=== PATIENT | female | born 1960 | race Caucasian/White ===

== ENCOUNTER 2019-10-10 18:18 | Inpatient (IN) | payer OTHER ==
[~2019-10-10] VITALS: Ht 165.1 cm; Wt 73.9 kg
[~2019-10-10 18:18] MED LIST: ACETAMINOPHEN 1000 MG/100 ML IV ONE; AMBIEN10 MG PO; CEFAZOLIN SOD 1 GM VIAL ONE; DEXAMETHASONE SOD PHOS INJ 4 MG/ML VIAL ONE; GABAPENTIN400 MG PO; KETOROLAC TROMETHAMINE 30 MG/ML VIAL ONE; LIDOCAINE HCL 2% LOCAL INJ 5 ML SDV VIAL INJ ONE; MS CONTIN30 MG PO; ONDANSETRON HCL INJ 2MG/ML 2ML 2 MG/ML VIAL ONE; PERCOCET 10-321 EACH PO; PHENERGAN SUPP25 MG PO; PROPOFOL IV EMULSION 10 MG/ML 20 ML VIAL ONE; SEVOFLURANE INHAL SOLN 250 ML PEN BTL ONE; SUCCINYLCHOLINE CHLORIDE 20 MG/ML 10ML VIAL ONE; TIZANIDINE HCL4 MG PO
[2019-10-10] MEDS ORDERED: MORPHINE SULFATE INJ 4 MG/ML INJ 1ML IV STA (18:23)
[2019-10-10] MEDS ORDERED: ONDANSETRON HCL INJ 2MG/ML 2ML 2 MG/ML VIAL IV STA (18:23)
[2019-10-10] MEDS ORDERED: SODIUM CHLORIDE 0.9% 1000ML 1,000 ML IV STA (18:23)
[2019-10-10 19:09] LABS: BASOPHILS % 0.3 % (0.0-1.0); EOSINOPHILS # (AUTO) 0.5 (0.0-0.4); HEMATOCRIT 30.1 % (34.2-44.1); HEMOGLOBIN 9.3 g/dL (12.0-16.0); LYMPHOCYTES # (AUTO) 2.2 (1.0-3.2); LYMPHOCYTES % 16.1 % (18.0-39.1); MEAN CORPUSCULAR HEMOGLOBIN 23.4 pg (28-32); MEAN CORPUSCULAR HGB CONC 30.9 g/dL (31-35); MEAN CORPUSCULAR VOLUME 75.6 fL (81-99); MONOCYTES # (AUTO) 0.6 (0.2-0.8); MONOCYTES % 4.4 % (4.4-11.3); NEUTROPHILS % 74.9 % (38.7-80.0); PLATELET COUNT 579 x10e3/uL (140-360); RED BLOOD COUNT 3.98 x10e6/uL (3.6-5.1); RED CELL DISTRIBUTION WIDTH 17.3 % (11.7-14.4)
[2019-10-10 19:14] LABS: INR 0.98; PROTHROMBIN TIME 13.6 seconds (11.9-14.5)
[2019-10-10 19:15] LABS: PARTIAL THROMBOPLASTIN TIME 41.4 seconds (23.8-35.5)
--- NOTE | 2019-10-10 19:17 | Diagnostic Imaging Report ---
HIP LEFT 2-3 VW (+/- PELVIS) - 3 views HISTORY: Pain COMPARISON: None available. FINDINGS: Nondisplaced fracture of the left femoral neck. Pelvic surgical clips. Degenerative changes of lower lumbar spine and SI joints. IMPRESSION: Nondisplaced fracture of the left femoral neck. Signed by: Dr. Faisal Hough MD on 10/10/2019 7:14 PM
[2019-10-10 19:24] LABS: ALBUMIN 3.1 g/dL (3.5-5.0); ALBUMIN/GLOBULIN RATIO 0.7 (0.8-2.0); ALKALINE PHOSPHATASE 87 IU/L (40-150); ANION GAP 11.1 mmol/L (8-16); BLOOD UREA NITROGEN 15 mg/dL (7-26); BUN/CREATININE RATIO 19 (6-25); CALCIUM 9.4 mg/dL (8.4-10.2); CARBON DIOXIDE 29 mmol/L (22-29); CHLORIDE 100 mmol/L (98-107); CREATINE KINASE 52 IU/L (29-168); CREATININE, SERUM 0.78 mg/dL (0.57-1.11); EST GLOMERULAR FILTRATION RATE > 60 ML/MIN (60-); GLUCOSE 100 mg/dL (74-118); POTASSIUM 4.1 mmol/L (3.5-5.1); SODIUM 136 mmol/L (136-145)
[2019-10-10 19:25] LABS: BILIRUBIN,URINE NEGATIVE (NEGATIVE); CLARITY,URINE SL CLOUDY (CLEAR); COLOR,URINE YELLOW (YELLOW); KETONES,URINE NEGATIVE (NEGATIVE); LEUKOCYTE ESTERASE ,URINE NEGATIVE (NEGATIVE); NITRITE,URINE NEGATIVE (NEGATIVE); PROTEIN,URINE DIPSTICK NEGATIVE (NEGATIVE); URINE UROBILINOGEN 1 mg/dL (0.2 - 1)
[2019-10-10] MEDS ORDERED: ONDANSETRON HCL INJ 2MG/ML 2ML 2 MG/ML VIAL IV PRN (19:30)
[2019-10-10] MEDS ORDERED: HYDROMORPHONE 1MG/1ML INJ IV PRN (19:30)
[2019-10-10 19:39] LABS: ALANINE AMINOTRANSFERASE < 6 IU/L (0-55)
--- NOTE | 2019-10-10 20:23 | Diagnostic Imaging Report ---
EXAM: CT left hip WITHOUT contrast INDICATION: ^ortho request ^[id number] ^[id number] COMPARISON: Same day radiograph TECHNIQUE: Left hip was scanned utilizing a multidetector helical scanner without administration of IV contrast. Coronal and sagittal reformations were obtained. Routine protocol was performed. IV CONTRAST: None ORAL CONTRAST: None COMPLICATIONS: None RADIATION DOSE: Total DLP: 271.66 mGy*cm Estimated effective dose: (DLP x 0.015 x size factor) mSv CTDIvol has been reviewed. It is below the limits set by the Radiation Protocol Committee (RPC). FINDINGS: Nondisplaced fracture of the left femoral neck. Bladder is collapsed with a Kincaid catheter in place. Surgical clips projecting posterior to the symphysis pubic. Hysterectomy. Visualized bowel loops are unremarkable. No evidence of bowel obstruction. Anterolateral left thigh subcutaneous edema. Intramuscular hematoma in the proximal anterior thigh compartment (series 3, image 81) cannot be excluded. IMPRESSION: 1. Nondisplaced fracture of the left femoral neck. 2. Anterolateral left thigh subcutaneous edema. Intramuscular hematoma in the proximal anterior thigh compartment cannot be excluded. Signed by: Dr. Faisal Hough MD on 10/10/2019 8:20 PM
[2019-10-10] MEDS ORDERED: HYDROMORPHONE 1MG/1ML INJ ONE (20:52)
[2019-10-10 21:28] LABS: AMORPHOUS SEDIMENT,URINE FEW (FEW); BACTERIA,URINE FEW /HPF; EPITHELIAL CELLS,URINE FEW /LPF; RBC,URINE 0-5 /HPF (0-5); WBC,URINE (MAN) 0-5 /HPF (0-5)
--- NOTE | 2019-10-10 22:28 | NUR ---
ORTHOPEDICS CONSULTATION 59 yo community ambulating female without assistive device presents to the ED after a mechanical fall with left hip pain and an inability to ambulate. Pain localized to left hip. Denies numbness, paresthesias or loss of distal motor function. Denies any new pain in any other extremity. PMDHx: Chronic Pain, Osteoarthritis in many joints, Left Femur Fracture treated with closed reduction Allergies: IVP Dye & Iodine SurgHx: Partial Vulvectomy, Hysterectomy FamHx: Noncontributory SocHx: Denies EtoH & Drug Use. Smokes 1 pack per day VS T 98.7, HR 99, RR 14, BP 143/86 O2 98% Gen: AAO x 3, Anxious Left Leg, no open lesions or sores, Shortened Motor: + EHL, FHL, TA, G/S Sensation grossly intact Pulses + DP, Post tib Compartments soft, Negative calf tenderness Xrays & CT demonstrate a non-displaced Valgus impacted femoral neck fracture 59 year old female with non-displaced valgus impacted femoral neck fracture 1. Plan for Closed Reduction Percutaneous Pinning in Am 2. Analgesics 3. DVT Prophylaxis 4. Bedrest 5. NPO except meds 6. Hold anticoagulation after midnight 7. IVF while NPO Saarh Lucas, DO [facility] [place]
[2019-10-10] MEDS ORDERED: MORPHINE SULFATE INJ 4 MG/ML INJ 1ML IV PRN (22:30)
[2019-10-10] MEDS ORDERED: HEPARIN SOD (PORCINE) 5,000 UNIT/ML VIAL SC ONE (22:30)
[2019-10-10] MEDS ORDERED: HYDROCODONE/APAP 5MG-325MG TAB PO PRN (22:30)
--- NOTE | 2019-10-10 23:00 | NUR ---
PATIENT WAS BROUGHT FROM ER IN A STRETCHER WITH C/O LEFT FEMUR FRACTURE.AAOX4.NO RESP.DISTRESS PAIN VOICED 01/25.IV TO LEFT EJ IS PATENT.TATE IN PLACE.ORIENTED TO THE UNIT.BED LOCKED AND IN LOWEST POSITION.PHONE AND CALL LIGHT WITHIN REACH.INSTRUCTED TO CALL FOR ASSISTANCE NEEDED.
[2019-10-10] MEDS: HYDROCODONE/APAP 10MG-325MG TAB PO PRN (23:26)
[2019-10-10 23:35] VITALS: BP 129/74
[2019-10-10 23:47] VITALS: BP 129/74
--- NOTE | 2019-10-10 23:56 | Diagnostic Imaging Report ---
EXAMINATION: CHEST SINGLE (PORTABLE) INDICATION: Pre-op. COMPARISON: None FINDINGS: TUBES and LINES: None. LUNGS: Lungs are mildly hyperinflated. Mild patchy bibasilar opacities. Mild bronchial wall thickening. No evidence of lobar pneumonia or pulmonary edema. PLEURA: No pleural effusion or pneumothorax. HEART AND MEDIASTINUM: No cardiomegaly. Prominence of the bilateral main pulmonary arteries. BONES AND SOFT TISSUES: No acute osseous lesion. Soft tissues are unremarkable. UPPER ABDOMEN: No free air under the diaphragm. IMPRESSION: Mildly hyperinflated lungs, which may represent obstructive airways disease with associated bronchitis. Patchy bibasilar opacities, likely atelectasis. Prominence of the bilateral main pulmonary arteries, which may represent pulmonary arterial hypertension. Signed by: Dr. Eitan Law MD on 10/10/2019 11:52 PM
[2019-10-10] MEDS: SODIUM CHLORIDE 0.9% 1000ML 1,000 ML IV SCH (23:57)
[2019-10-11] VITALS: BP 129/74
--- NOTE | 2019-10-11 00:10 | NUR ---
CONSENT SIGNED.HEPARIN 5000U SC GIVEN AFTER CLARIFY WITH NEURORADIOLOGIST PHYSICIAN OF .
[2019-10-11] MEDS: HYDROMORPHONE 2MG/ML 2 MG/ML ML IV PRN ×7 (00:31→23:06)
[2019-10-11] MEDS ORDERED: ONDANSETRON HCL INJ 2MG/ML 2ML 2 MG/ML VIAL IV PRN (01:30)
--- NOTE | 2019-10-11 02:48 | NUR ---
PATIENT IS RESTING IN THE BED.ON NPO.STABLE CONDITION.
[2019-10-11] MEDS: SODIUM CHLORIDE 0.9% 1000ML 1,000 ML IV SCH ×3 (03:16→19:16)
[2019-10-11 04:00] VITALS: BP 121/80
--- NOTE | 2019-10-11 06:19 | NUR ---
TRANSFERRED TO OR FOR PROCEDURE IN ASTABLE CONDITION.
[2019-10-11] MEDS ORDERED: BUPIVACAINE 0.25% 30ML SDV INJ ONE (06:44)
--- NOTE | 2019-10-11 07:02 | NUR ---
BED SIDE SHIFT REPORT GIVEN TO ONCOMING RN.STABLE CONDITION.
[2019-10-11] MEDS ORDERED: HYDROMORPHONE 1MG/1ML INJ ONE (07:25)
[2019-10-11] MEDS ORDERED: HYDROMORPHONE 2MG/ML 2 MG/ML ML ONE (08:46)
[2019-10-11] MEDS: ASPIRIN 325 MG TAB PO SCH ×2 (09:00→16:46)
[2019-10-11] MEDS ORDERED: FENTANYL CITRATE/PF 100MCG/2 ML INJ ONE ×2 (09:06→16:11)
[2019-10-11] MEDS ORDERED: ONDANSETRON HCL INJ 2MG/ML 2ML 2 MG/ML VIAL ONE (09:10)
[2019-10-11 09:32] VITALS: BP 135/76
--- NOTE | 2019-10-11 09:44 | NUR ---
pt returned to room via bed awake ,moaning ,pain to lt hip,medicated in recovery,blu cd&i
[2019-10-11] MEDS ORDERED: GABAPENTIN 400 MG CAP PO SCH (11:30)
[2019-10-11] MEDS ORDERED: TIZANIDINE HCL 4 MG TAB PO SCH (11:30)
[2019-10-11 11:59] VITALS: BP 106/76
[2019-10-11] MEDS ORDERED: GABAPENTIN 400 MG CAP PO PRN (12:45)
--- NOTE | 2019-10-11 12:45 | NUR ---
physicl theraoy here assisted pt up to chair tolerated well.
[2019-10-11] MEDS: CEFAZOLIN SOD 1 GM/NS 50ML 50 ML IV SCH ×2 (13:56→22:00)
--- NOTE | 2019-10-11 14:11 | History and Physical ---
HISTORY OF PRESENT ILLNESS: The patient is a 59-year-old female with past medical history positive for hypertension, COPD, fell and have a left hip fracture. She underwent left hip fracture repair. REVIEW OF SYSTEMS: CARDIOVASCULAR: No chest pain or palpitation. RESPIRATORY: No shortness of breath. No cough. GASTROINTESTINAL: No nausea. No vomiting. No diarrhea. GENITOURINARY: No frequency or dysuria. MUSCULOSKELETAL: Left hip pain after a fall. PAST MEDICAL HISTORY: 1. COPD. 2. Hypertension. SOCIAL HISTORY: She smokes. She does not drink alcohol. ALLERGIES: SHE IS ALLERGIC TO IODINE. PHYSICAL EXAMINATION: HEART: Showed regular rhythm. Normal S1 and S2 sound. LUNGS: Clear bilaterally. ABDOMEN: Soft. EXTREMITIES: Show incision on the right hip. VITAL SIGNS: Blood pressure 135/76, temperature 97.6, heart rate 66 per minute, respiratory rate 18 per minute, and oxygen saturation 98%. LABORATORY DATA: On CBC; white blood count is elevated at 13.36, hemoglobin 9.3, hematocrit 30.1, and platelet count 579,000. On the BMP; sodium 136, potassium 4.1, chloride 100, CO2 of 29, BUN 15, creatinine 0.78, GFR 60, glucose 100, calcium 9.4, total bilirubin 0.2, AST 9, ALT 6, alkaline phosphatase 87, creatine kinase 52, CK-MB 3.0, troponin 0.076, total protein 7.7, albumin 3.1, globulin 4.6. Coronavirus test has been done and the report is pending. CT of the hip showed nondisplaced fracture of the left femoral neck. Anterolateral left thigh hematoma in the proximal anterior thigh compartment cannot be excluded. She also had a chest x-ray, which shows hyperinflated lungs which may represent obstructive airway disease with associated bronchitis. Patchy bibasilar opacity likely atelectasis, prominent of bilaterally main pulmonary arteries which may represent pulmonary hypertension. So, the patient underwent left hip fracture repair. TREATMENT AND PLAN: Continue Ancef 1 g IV q.8 hours. Continue normal saline 125 mL an hour. Continue aspirin 325 mg twice a day. Continue [place] 10/325 mg tab q.4 hours as needed for severe pain and [place] 5/325 mg tab q.4 hours as needed for moderate pain, Dilaudid 1 mg IV every 3 hours as needed for severe pain, Zofran 4 mg IV q.4 hours as needed for nausea and vomiting, Ambien 10 mg at night p.r.n. for sleep, Tylenol 650 mg q.4 hours as needed for moderate pain. We are going to repeat a CBC tomorrow. MD MELE Arguello/ROSY /[id number]
[2019-10-11] MEDS ORDERED: MIDAZOLAM HCL 2 MG/2 ML VIAL ONE (16:11)
[2019-10-11 16:18] VITALS: BP 98/69
[2019-10-11] MEDS: ONDANSETRON HCL 4 MG ORAL DISINTEGRATING TAB PO PRN (16:31)
--- NOTE | 2019-10-11 16:56 | NUR ---
PT UP IN BED ,PAIN LEVEL 5 MEDICATED.
[2019-10-11 20:00] VITALS: BP 102/62
--- NOTE | 2019-10-11 20:01 | NUR ---
Received change of shift report from AM nurse. Walking rounds completed.
[2019-10-11] MEDS: ZOLPIDEM TARTRATE 10 MG TAB PO SCH (21:00)
--- NOTE | 2019-10-11 23:00 | NUR ---
Operative Note - Orthopedic Surgery PREOPERATIVE DIAGNOSES: Left Valgus Impacted Femoral Neck Fracture POSTOPERATIVE DIAGNOSES: Left Valgus Impacted Femoral Neck Fracture OPERATION PERFORMED: Closed Reduction, Percutaneous Pinning Left Hip SURGEON: Sarah Lucas DO ANESTHESIA: General. EBL: 20cc COMPLICATIONS: None IMPLANTS: Styrker Asnic Screws 6.5 x 85 TL 20mm x 2, 6.5 x 90 TL 20mm DESCRIPTION OF OPERATION: The patient was taken to the operating room and placed under general anesthesia. The left lower extremity and left upper extremity had all bony prominences well padded and secured. SCD was placed on th e right lower leg. Preoperative Ancef antibiotics were given. The patients left lower extremities were sterilely prepped and draped in the usual fashion. A time-out was performed to identify the correct extremity. The left hip was visualized under flouroscopy and the hip was adducted to improve the position of the fracture and to allow for pinning. Next and incisio n was made lateral to the greater trochanter. A guide pin was introduced throug h the inferior portion neck and head under flouroscopic guidance and deemed to be in adequate position. Two other guide pins were inserted under similar fashi on along the superoanterior and superoposterior portion of the neck and head. The intraosseous length of the pin was measured and three Asnis III Partially Threaded Cannulated Screws were introduced into the neck and head. The anterosuperior screw was 6.5 x 85mm TL 20 mm, posterosuperior screw was 6.5 x 90 mm TL 20 mm and 6.5 x 85 mm TL 20mm. The guide pins were removed and final imaging was taken and interpreted to be in adequate position. The incisions were thoroughly irrigated, and the fascia was closed with 0 vicryl, and the subcutaneous tissue was closed with 2-0 vicryl. 3-0 Monocryle were placed to close the skin and the skin was then cleaned. An Aquacel dressing was placed. The patient was transferred to the recovery room due under stable condition.
[2019-10-12] VITALS (9 sets, daily range): BP systolic 108–131; BP diastolic 54–70
--- NOTE | 2019-10-12 | NUR ---
Patient AAOx3. Request pain meds every 3 hours crying. Meds given as ordered by MD. IV intact left IJ. Kincaid draining via bedside drainage. Dressing to left hip dry and intact. Continue monitor.
[2019-10-12] MEDS: HYDROMORPHONE 2MG/ML 2 MG/ML ML IV PRN ×8 (02:46→23:48)
[2019-10-12] MEDS: SODIUM CHLORIDE 0.9% 1000ML 1,000 ML IV SCH ×3 (03:16→22:44)
--- NOTE | 2019-10-12 03:22 | NUR ---
Patient received pain meds and resting quitly at this time. Asst to comfortable position.
[2019-10-12] MEDS: CEFAZOLIN SOD 1 GM/NS 50ML 50 ML IV SCH (05:03)
[2019-10-12 07:10] LABS: BASOPHILS % 0.3 % (0.0-1.0); EOSINOPHILS # (AUTO) 0.2 (0.0-0.4); EOSINOPHILS % 1.3 % (0.0-6.0); HEMATOCRIT 24.6 % (34.2-44.1); HEMOGLOBIN 7.4 g/dL (12.0-16.0); LYMPHOCYTES # (AUTO) 2.7 (1.0-3.2); LYMPHOCYTES % 18.8 % (18.0-39.1); MEAN CORPUSCULAR HEMOGLOBIN 23.2 pg (28-32); MEAN CORPUSCULAR HGB CONC 30.1 g/dL (31-35); MEAN CORPUSCULAR VOLUME 77.1 fL (81-99); MONOCYTES # (AUTO) 0.7 (0.2-0.8); NEUTROPHILS # (AUTO) 10.6 (2.1-6.9); NEUTROPHILS % 74.1 % (38.7-80.0); PLATELET COUNT 488 x10e3/uL (140-360); RED BLOOD COUNT 3.19 x10e6/uL (3.6-5.1); RED CELL DISTRIBUTION WIDTH 17.5 % (11.7-14.4)
--- NOTE | 2019-10-12 07:10 | NUR ---
PT UP IN BED PAIN LEVEL3,NO DISTRESS NOTED.
--- NOTE | 2019-10-12 07:54 | NUR ---
ORTHOPEDIC PROGRESS NOTE Patient seen & examined resting comfortably at bedside. Pain improved. No acute events overnight VS 98.2 HR 74 RR 16 BP 108/54 96% Left Lower Extremity Dressing clean, dry and intact Motor: + EHL, FHL, TA, G/S Sensation grossly intact to light touch Pulses+ DP, Post tib Compartments soft Negative calf tenderness H/H 7.4/2.6 59 yo F s/p Left Hip CRPP POD #1 Analgesics DVT Prophylaxis PT WBAT Keep dressing clean, dry and intact Follow up AM Labs LION Lucas, DO [facility] [place].
[2019-10-12] MEDS: ASPIRIN 325 MG TAB PO SCH ×2 (07:57→17:44)
--- NOTE | 2019-10-12 09:13 | NUR ---
physical therapy here ambulated pt ,tolerated well
--- NOTE | 2019-10-12 09:49 | NUR ---
PT TRANSFERRED TO 114 VIA W/C TOLERATED WELL.
--- NOTE | 2019-10-12 09:50 | NUR ---
Pt arrived in room 114; pt awake, alert, oriented X3, sitting up in wheelchair. Pt states she wants to stay in chair for now; wheels locked, call light within reach. pt appears comfortable, no signs of distress. will continue to monitor. Addendum: 10/12/19 at 0958 by Keith Maddox RN pt has dressing to left hip; dressing c/d/i. chronic swelling noted to bilateral knees, which pt states is her baseline.
--- NOTE | 2019-10-12 10:30 | NUR ---
PT ASSISTED BY RN TO GET IN BED; BED LOCKED AND IN LOWEST POSITION. ALL SAFETY MEASURES IN PLACE; NO SIGNS OF DISTRESS.
--- NOTE | 2019-10-12 12:25 | NUR ---
PAGED DR. ABBOTT REGARDING NEW CONSULT; LEFT MESSAGE ON ANSWERING MACHINE.
--- NOTE | 2019-10-12 12:39 | Progress Note ---
DATE: Internal Medicine Progress Note SUBJECTIVE: The patient had a left hip fracture repair yesterday, doing well except for the pain in the hip. PHYSICAL EXAMINATION: VITAL SIGNS: Temperature 98.0, heart rate 84 per minute, respiratory rate 20 per minute, blood pressure is 109/66, oxygen saturation is 99%. HEART: Showed regular rhythm. Normal S1, S2 sound. LUNGS: Clear bilaterally. ABDOMEN: Soft. EXTREMITIES: Showed incision on the hip. LABORATORY DATA: The on the CBC; white blood count 14.33, which is elevated from yesterday, hemoglobin 7.4, hematocrit 24.6, mean corpuscular volume 77 which is low, platelet count 488,000. We have a complete metabolic panel sodium 136, potassium 4.1, chloride 100, CO2 of 29, BUN 15, creatinine 0.78, GFR is more than 60, glucose 100, calcium 9.4, total bilirubin 0.2, AST 9, ALT 6, alkaline phosphatase 87, creatine kinase 52, CK-MB 3.0, troponin 0.076. Total protein 7.7, albumin 3.1, globulin 4.6, albumin globin ratio 0.7. Billings virus test is pending. FINAL IMPRESSION: 1. Left femoral fracture status post surgical repair. 2. History of hypertension. 3. Chronic obstructive pulmonary disease. 4. Acute anemia postsurgical. PLAN OF TREATMENT: We are going to repeat another CBC tomorrow and make sure the hemoglobin does not go below 7.0, which for blood transfusion. Continue normal saline 125 mL an hour, Aspirin 325 mg twice a day. She is also on gabapentin 600 mg three times a day as needed, [place] 10/325 mg tablet q.4 hours as needed for severe pain. She is also on [place] 5/325 q.4 hours as needed for moderate pain, Dilaudid 1 mg IV every 3 hours as needed for severe pain. She is also taking Zofran 4 mg p.o. q.4 hours as needed for nausea and vomiting, Zanaflex 4 mg twice a day as needed for muscle spasm, Ambien 10 mg at nighttime. Continue physical and occupational therapy without restrictions. The patient should follow with orthopedic surgeon. Diet low-salt diet. MD MELE Arguello/ROSY /[id number]
[2019-10-12] MEDS: ONDANSETRON HCL 4 MG ORAL DISINTEGRATING TAB PO PRN (14:45)
--- NOTE | 2019-10-12 16:15 | NUR ---
pt voided and had BM; pt awake, alert, no signs of retention, no c/o pain at this time. will continue to monitor.
--- NOTE | 2019-10-12 19:10 | NUR ---
RECEIVED REPORT FROM PREVIOUS NURSE. CALL LIGHT WITHIN REACH. PATIENT IN BED. WALKING ROUNDS DONE.
[2019-10-12] MEDS: ZOLPIDEM TARTRATE 10 MG TAB PO SCH (20:28)
[2019-10-13] VITALS (9 sets, daily range): BP systolic 122–159; BP diastolic 58–88
[2019-10-13] MEDS: HYDROMORPHONE 2MG/ML 2 MG/ML ML IV PRN ×3 (02:48→09:20)
[2019-10-13 05:22] LABS: BASOPHILS % 0.3 % (0.0-1.0); EOSINOPHILS # (AUTO) 0.5 (0.0-0.4); EOSINOPHILS % 5.4 % (0.0-6.0); HEMATOCRIT 23.6 % (34.2-44.1); HEMOGLOBIN 7.1 g/dL (12.0-16.0); LYMPHOCYTES # (AUTO) 3.4 (1.0-3.2); LYMPHOCYTES % 37.3 % (18.0-39.1); MEAN CORPUSCULAR HEMOGLOBIN 23.1 pg (28-32); MEAN CORPUSCULAR HGB CONC 30.1 g/dL (31-35); MEAN CORPUSCULAR VOLUME 76.6 fL (81-99); MONOCYTES # (AUTO) 0.5 (0.2-0.8); MONOCYTES % 5.5 % (4.4-11.3); NEUTROPHILS # (AUTO) 4.6 (2.1-6.9); NEUTROPHILS % 50.9 % (38.7-80.0); PLATELET COUNT 445 x10e3/uL (140-360); RED BLOOD COUNT 3.08 x10e6/uL (3.6-5.1); RED CELL DISTRIBUTION WIDTH 17.5 % (11.7-14.4)
--- NOTE | 2019-10-13 07:17 | NUR ---
GAVE REPORT TO ONCOMING NURSE. PATIENT IN BED. CALL LIGHT WITHIN REACH. BEDSIDE ROUNDING DONE.
[2019-10-13] MEDS: SODIUM CHLORIDE 0.9% 1000ML 1,000 ML IV SCH ×3 (08:41→18:29)
[2019-10-13] MEDS: ASPIRIN 325 MG TAB PO SCH ×2 (08:42→17:42)
--- NOTE | 2019-10-13 10:00 | NUR ---
EDUCATED PATIENT ON ALL THE DIFFERENT PAIN MEDICATIONS AVAILABLE TO HER TO HELP HER WITH HER PAIN, FOUND CRYING IN BED THIS AM BEFORE DIALUDED WAS AVAILABLE (TIME) AND EXPLAINED ALL THE OTHER MEDICATIONS SHE HAD AVAILABLE. SHE REFUSED EVERYTHING ELSE AND SAID SHE ONLY WANTED DILAUDED AND WOULD SPEAK TO HER DOCTOR
[2019-10-13 11:13] LABS: FREE THYROXINE INDEX 2.7471 (1.4-3.8); THYROID STIMULATING HORMONE 3.057 uIU/mL (0.350-4.940)
[2019-10-13] MEDS: HYDROMORPHONE 1MG/1ML INJ IV PRN ×5 (12:30→21:30)
--- NOTE | 2019-10-13 14:13 | NUR ---
PATIENT INFORMED ME SHE WAS UNHAPPY WITH THE WAY I APPROACHED HER THIS MORNING AND REQUESTED ANOTHER STAFF MEMBER TAKE CARE OF HER EXCEPT WHEN SHE WANTS HER DILAUDID SHE WILL CALL ME. I AGREED AND APOLOGIZED AND LET HER KNOW I WILL PROVIDE ALL HER CARE AND WOULD MAKE SURE SHE HAD HER DILAUDED WHEN SHE CALLED FOR IT EVERY THREE HOURS. SHE AGREED. I LET MARVIN DOUGLAS KNOW THE SITUATION SO SHE COULD ASSIST ME IF NEEDED IN PROVIDING CARE TO HER
[2019-10-13] MEDS: TIZANIDINE HCL 4 MG TAB PO PRN (17:42)
[2019-10-13] MEDS: GABAPENTIN 300 MG CAP PO PRN (17:42)
[2019-10-13] MEDS: HYDROCODONE/APAP 10MG-325MG TAB PO PRN (17:42)
--- NOTE | 2019-10-13 19:15 | NUR ---
Bedside report and walking rounds completed with off going nurse. Patient in bed with call light within reach. No issues or concerns noted. Will continue to monitor closely.
[2019-10-13] MEDS: ZOLPIDEM TARTRATE 10 MG TAB PO SCH (20:22)
[2019-10-13] MEDS: NICOTINE 14 MG/EA PATCH TOP SCH (20:22)
--- NOTE | 2019-10-13 22:23 | NUR ---
ORTHOPEDIC PROGRESS NOTE No acute events today. VS T 96.2 HR 63 RR 18 BP 127/58 O2 96% Hgb/ Hct 7.1/23.6 59 yo F s/p Left hip CRPP POD #2 Patient orthopedically stable for discharge May transfuse as per medicine depending on tomorrow's labs Analgesics PRN DVT Prophylaxis PT - WBAT Follow up in office in 2 weeks Keep dressing, clean, dry and intact Sarah Lucas, DO [facility] [place]
[2019-10-14] VITALS (7 sets, daily range): BP systolic 125–166; BP diastolic 68–75
[2019-10-14] MEDS: HYDROMORPHONE 1MG/1ML INJ IV PRN ×8 (00:30→21:13)
[2019-10-14] MEDS: SODIUM CHLORIDE 0.9% 1000ML 1,000 ML IV SCH ×3 (00:38→16:42)
[2019-10-14] MEDS: GABAPENTIN 300 MG CAP PO PRN ×3 (03:40→23:13)
[2019-10-14] MEDS: HYDROCODONE/APAP 10MG-325MG TAB PO PRN ×4 (05:33→23:13)
[2019-10-14] MEDS: TIZANIDINE HCL 4 MG TAB PO PRN ×3 (05:33→21:13)
[2019-10-14 05:41] LABS: HEMATOCRIT 23.1 % (34.2-44.1)
--- NOTE | 2019-10-14 07:00 | NUR ---
Bedside report and walking rounds completed with on coming nurse. Patient in bed with call light within reach. No issues or concerns noted.
[2019-10-14] MEDS ORDERED: NICOTINE 14 MG/EA PATCH TOP SCH (09:00)
[2019-10-14] MEDS: NICOTINE 14 MG/EA PATCH TOP SCH (09:07)
[2019-10-14] MEDS: ASPIRIN 325 MG TAB PO SCH ×2 (09:07→16:16)
[2019-10-14] MEDS ORDERED: FUROSEMIDE INJ 10 MG/ML 2 ML VIAL IV PRN (10:30)
[2019-10-14] MEDS ORDERED: SODIUM CHLORIDE 0.9% 250ML 250 ML IV ONE (11:10)
[2019-10-14] MEDS: ONDANSETRON HCL 4 MG ORAL DISINTEGRATING TAB PO PRN (12:55)
[2019-10-14] MEDS: ZOLPIDEM TARTRATE 10 MG TAB PO SCH (22:00)
[2019-10-15] VITALS: BP 173/82
[2019-10-15] MEDS: HYDROMORPHONE 1MG/1ML INJ IV PRN ×4 (00:10→09:20)
[2019-10-15] MEDS: SODIUM CHLORIDE 0.9% 1000ML 1,000 ML IV SCH ×2 (03:19→11:16)
[2019-10-15 04:00] VITALS: BP 158/77
[2019-10-15 05:49] LABS: BASOPHILS # (AUTO) 0.1 (0.0-0.1); BASOPHILS % 0.5 % (0.0-1.0); EOSINOPHILS # (AUTO) 0.8 (0.0-0.4); EOSINOPHILS % 7.1 % (0.0-6.0); HEMATOCRIT 32.1 % (34.2-44.1); HEMOGLOBIN 9.8 g/dL (12.0-16.0); LYMPHOCYTES # (AUTO) 2.6 (1.0-3.2); LYMPHOCYTES % 24.7 % (18.0-39.1); MEAN CORPUSCULAR HEMOGLOBIN 23.7 pg (28-32); MEAN CORPUSCULAR HGB CONC 30.5 g/dL (31-35); MEAN CORPUSCULAR VOLUME 77.7 fL (81-99); MONOCYTES # (AUTO) 0.5 (0.2-0.8); NEUTROPHILS # (AUTO) 6.6 (2.1-6.9); NEUTROPHILS % 61.9 % (38.7-80.0); PLATELET COUNT 456 x10e3/uL (140-360); RED BLOOD COUNT 4.13 x10e6/uL (3.6-5.1); RED CELL DISTRIBUTION WIDTH 17.8 % (11.7-14.4)
--- NOTE | 2019-10-15 07:00 | NUR ---
Bedside report and walking rounds completed with on coming nurse. Patient in bed and call light within reach. No issues or concerns noted.
[2019-10-15 08:32] VITALS: BP 152/72
[2019-10-15 08:56] VITALS: BP 152/72
[2019-10-15] MEDS: ASPIRIN 325 MG TAB PO SCH (09:14)
[2019-10-15] MEDS: NICOTINE 14 MG/EA PATCH TOP SCH (09:15)
[2019-10-15] MEDS: HYDROCODONE/APAP 10MG-325MG TAB PO PRN (11:07)
[2019-10-15] MEDS: GABAPENTIN 300 MG CAP PO PRN (11:07)
--- NOTE | 2019-10-15 12:04 | NUR ---
ORDERS FOR HOME HEALTH SKILLED NURSE EVAL AND TREAT ; HOME PT/OT EVAL AND TREAT 3 IN 1 COMMODE AND ROLLING WALKER PT REQUESTING A WHEELCHAIR EXPLAINED TO PT THAT A WHEELCHAIR IS TYPICALLY NOT NEEDED S/P HIP SURGERY DR Qiana MARTIN AND DR ALMAZAN BOTH AGREE A WHEELCHAIR IS NOT INDICATED AFTER THIS SURGERY ARRANGED HOME HEALTH WITH [facility] SPOKE WITH ELLEN PH: [phone] FAX: [phone] CONFIRMED WITH ELLEN THAT THEY TAKE [facility] INSURANCE ARRANGED 3 IN 1 COMMODE WITH [facility] PH:[phone] FAXED ORDERS AND SIGNED SCRIPT TO [phone] PROVIDED WALKER TO PT FROM HOSPITAL RECEIVED CALL FROM [facility] STATING 3 IN 1 COMMODES ARE ON BACK ORDER AND CAN'T BE DELIVERED UNTIL 7-10 DAYS CALL PLACED TO [facility] , ELVIRA FONSECA PH: [phone] STATES THEY TAKE PT'S INS AND CAN DELIVER A 3 IN 1 TO PT TODAY OR TOMORROW CHOICE LETTER SIGNED BY PT FOR [facility] FAXED CLINICALS TO [phone] CONFIRMATION REC'D NOTIFIED PT THAT SHE SHOULD RECEIVE 3 IN 1 TODAY OR TOMORROW PT HAS MY CARD FOR QUESTIONS OR CONCERNS
--- NOTE | 2019-10-15 12:36 | NUR ---
3 IN 1 CANCELLED WITH [facility]
--- NOTE | 2019-10-20 13:27 | NUR ---
CM REC'D PHONE CALL FROM PT TODAY STATING THAT SHE HAS NOT REC'D HOME HEALTH OR P.T. FROM [facility] SINCE DISCHARGE STATES SHE REC'D ONE PHONE CALL THE DAY AFTER DISCHARGE STATING THEY HAVE REC'D THE REFERRAL AND WERE WORKING ON AUTH PT STATES SHE LOOKED AT THE COMPANIES REVIEWS AND THEY "WERE HORRIBLE" STATES SHE SPOKE WITH HER INSURANCE COMPANY AND WAS GIVEN THE NAME OF [employer] [phone] STATES SHE WANTS TO SWITCH TO THIS COMPANY; ENCOURAGED PT TO CALL [facility] AND LET THEM KNOW HER CHOICE AND SHE REFUSED CM CALLED [facility] AND SPOKE WITH ELLEN WHO STATES THAT SHE SPOKE WITH PT THIS PAST SUNDAY TO LET HER KNOW THEY ARE STILL WAITING ON AUTH; ELLEN STATES THAT [facility] HAS 1-7 BUSINESS DAYS TO GIVE AUTH WHICH WOULD PUT LATEST AUTH ON 10/23 ELLEN ALSO STATES THAT [employer] [facility] IS PROVIDER SERVICES; NOT HOME HEALTH ELLEN STATES SHE WILL CALL PT AND LET HER KNOW THIS AND WILL GET BACK WITH ME TODAY AFTER SHE SPEAKS WITH HER
== END 2019-10-15 12:50 | disposition home health service (06) | DRG 481 ==
LOC: ER 18:18 → ERHOLD 19:16 → UNDOADMOB 19:19 → MED/SURG3 22:05 → MED/SURG 10-12 09:43
PROC: 30233N1 Transfusion of Nonautologous Red Blood Cells into Peripheral Vein, Percutaneous Approach (ICD-10-PCS; principal; 2019-10-10)
PROC: 0QS934Z Reposition Left Femoral Shaft with Internal Fixation Device, Percutaneous Approach (ICD-10-PCS; principal; 2019-10-10)
DX: M84.452A Pathological fracture, left femur, initial encounter for fracture (principal); D62 Acute posthemorrhagic anemia; J44.9 Chronic obstructive pulmonary disease, unspecified; I27.20 Pulmonary hypertension, unspecified; M06.9 Rheumatoid arthritis, unspecified; G62.9 Polyneuropathy, unspecified; N20.0 Calculus of kidney; G89.29 Other chronic pain
CPT/HCPCS: 36415; 51700; 71045; 80053; 81001; 82270; 82550; 82553; 82607; 82948; 83540; 84436; 84443; 84466; 84479; 84484; 85014; 85018; 85025; 85045; 85610; 85730; 86850; 86900; 86920; 87086; 87635; 93005; 96374; 96375; 97139; 99284; J0330; J0690; J1100; J1170; J1644; J1885; J1940; J2001; J2250; J2270; J2405; J3010; J7030; J7050; P9016; Q0162

== ENCOUNTER 2021-09-24 00:57 | Observation (INO) | payer OTHER ==
[~2021-09-24] VITALS: Ht 165.1 cm; Wt 69.4 kg
[~2021-09-24 00:57] MED LIST changes: -ACETAMINOPHEN 1000 MG/100 ML IV ONE; -CEFAZOLIN SOD 1 GM VIAL ONE; -DEXAMETHASONE SOD PHOS INJ 4 MG/ML VIAL ONE; -KETOROLAC TROMETHAMINE 30 MG/ML VIAL ONE; -LIDOCAINE HCL 2% LOCAL INJ 5 ML SDV VIAL INJ ONE; -ONDANSETRON HCL INJ 2MG/ML 2ML 2 MG/ML VIAL ONE; -PROPOFOL IV EMULSION 10 MG/ML 20 ML VIAL ONE; -SEVOFLURANE INHAL SOLN 250 ML PEN BTL ONE; -SUCCINYLCHOLINE CHLORIDE 20 MG/ML 10ML VIAL ONE
[2021-09-24 02:18] LABS: BASOPHILS # (AUTO) 0.1 (0.0-0.1); BASOPHILS % 0.6 % (0.0-1.0); EOSINOPHILS # (AUTO) 0.3 (0.0-0.4); EOSINOPHILS % 2.5 % (0.0-6.0); HEMATOCRIT 35.6 % (34.2-44.1); HEMOGLOBIN 11.6 g/dL (12.0-16.0); LYMPHOCYTES # (AUTO) 2.8 (1.0-3.2); LYMPHOCYTES % 22.6 % (18.0-39.1); MEAN CORPUSCULAR HEMOGLOBIN 25.8 pg (28-32); MEAN CORPUSCULAR HGB CONC 32.6 g/dL (31-35); MEAN CORPUSCULAR VOLUME 79.3 fL (81-99); MONOCYTES # (AUTO) 0.8 (0.2-0.8); NEUTROPHILS # (AUTO) 8.5 (2.1-6.9); NEUTROPHILS % 67.7 % (38.7-80.0); PLATELET COUNT 585 x10e3/uL (140-360); RED BLOOD COUNT 4.49 x10e6/uL (3.6-5.1); RED CELL DISTRIBUTION WIDTH 19.9 % (11.7-14.4)
[2021-09-24 02:31] LABS: ALBUMIN 3.2 g/dL (3.5-5.0); ALBUMIN/GLOBULIN RATIO 0.7 (0.8-2.0); ALKALINE PHOSPHATASE 89 IU/L (40-150); ANION GAP 12.2 mmol/L (8-16); BLOOD UREA NITROGEN 13 mg/dL (7-26); BUN/CREATININE RATIO 18 (6-25); CALCIUM 8.6 mg/dL (8.4-10.2); CARBON DIOXIDE 26 mmol/L (22-29); CHLORIDE 107 mmol/L (98-107); CREATININE, SERUM 0.72 mg/dL (0.57-1.11); EST GLOMERULAR FILTRATION RATE 83 ML/MIN (60-); GLUCOSE 110 mg/dL (74-118); POTASSIUM 4.2 mmol/L (3.5-5.1); SODIUM 141 mmol/L (136-145)
[2021-09-24 02:36] LABS: ALANINE AMINOTRANSFERASE < 6 IU/L (0-55)
[2021-09-24] MEDS ORDERED: KETOROLAC TROMETHAMINE 30 MG/ML VIAL IV STA (02:48)
[2021-09-24] MEDS ORDERED: ASPIRIN 81 MG CHEW TAB PO ONE (05:30)
[2021-09-24] MEDS: Morphine 4mg Syringe 4 MG/ML INJ IV PRN ×5 (05:40→23:53)
[2021-09-24] MEDS: ONDANSETRON HCL INJ 2MG/ML 2ML 2 MG/ML VIAL IV PRN ×5 (05:40→23:50)
[2021-09-24] MEDS ORDERED: GABAPENTIN600 MG PO (07:49)
[2021-09-24] MEDS ORDERED: OXYCODONE HCL15 MG PO (07:54)
[2021-09-24 08:16] VITALS: BP 110/68
[2021-09-24 08:50] VITALS: BP 110/68
[2021-09-24 11:59] VITALS: BP 109/67
[2021-09-24 14:34] LABS: CREATINE KINASE MB 0.6 ng/mL (0-5.0)
[2021-09-24] MEDS: NICOTINE 21 MG/EA PATCH TOP SCH (14:49)
[2021-09-24 15:44] VITALS: BP 103/62
[2021-09-24 20:00] VITALS: BP 103/62
[2021-09-24] MEDS ORDERED: HYDROCODONE/APAP 10MG-325MG TAB PO PRN (23:00)
[2021-09-25] MEDS: Morphine 4mg Syringe 4 MG/ML INJ IV PRN ×3 (05:15→13:38)
[2021-09-25] MEDS: ONDANSETRON HCL INJ 2MG/ML 2ML 2 MG/ML VIAL IV PRN ×3 (05:15→13:38)
[2021-09-25 05:53] LABS: BASOPHILS # (AUTO) 0.1 (0.0-0.1); BASOPHILS % 0.6 % (0.0-1.0); EOSINOPHILS # (AUTO) 0.6 (0.0-0.4); EOSINOPHILS % 4.9 % (0.0-6.0); HEMATOCRIT 36.2 % (34.2-44.1); HEMOGLOBIN 11.3 g/dL (12.0-16.0); LYMPHOCYTES # (AUTO) 3.9 (1.0-3.2); LYMPHOCYTES % 33.5 % (18.0-39.1); MEAN CORPUSCULAR HEMOGLOBIN 25.3 pg (28-32); MEAN CORPUSCULAR HGB CONC 31.2 g/dL (31-35); MONOCYTES # (AUTO) 0.8 (0.2-0.8); MONOCYTES % 6.7 % (4.4-11.3); NEUTROPHILS # (AUTO) 6.3 (2.1-6.9); NEUTROPHILS % 53.9 % (38.7-80.0); PLATELET COUNT 539 x10e3/uL (140-360); RED BLOOD COUNT 4.47 x10e6/uL (3.6-5.1)
[2021-09-25 06:22] LABS: ANION GAP 10.2 mmol/L (8-16); CALCIUM 8.4 mg/dL (8.4-10.2); CREATININE, SERUM 0.74 mg/dL (0.57-1.11); POTASSIUM 4.2 mmol/L (3.5-5.1)
[2021-09-25 07:04] LABS: CREATINE KINASE MB 0.4 ng/mL (0-5.0)
[2021-09-25 08:07] VITALS: BP 119/65
[2021-09-25 08:17] VITALS: BP 119/65
[2021-09-25] MEDS ORDERED: NICOTINE 21 MG/EA PATCH TOP SCH (09:00)
[2021-09-25] MEDS ORDERED: REGADENOSON 0.4 MG/5 ML SYR IV ONE (11:44)
[2021-09-25 12:06] VITALS: BP 121/72
[2021-09-25] MEDS: NICOTINE 21 MG/EA PATCH TOP SCH (13:38)
[2021-09-25 16:02] VITALS: BP 125/66
== END 2021-09-25 18:00 | disposition home or self-care (01) ==
LOC: ER 01:08 → ERHOLD 05:53 → MED/SURG 07:29
PROVIDERS: ADMIT Internal Medicine; ATTEND Internal Medicine
DX: I20.9 Angina pectoris, unspecified (principal); G62.9 Polyneuropathy, unspecified; M19.90 Unspecified osteoarthritis, unspecified site; Z82.49 Family history of ischemic heart disease and other diseases of the circulatory system; Z72.0 Tobacco use; Z91.041 Radiographic dye allergy status; Z20.822 Contact with and (suspected) exposure to COVID-19
CPT/HCPCS: 36415 ×2; 71045; 78452; 80048; 80053; 82550 ×2; 82553 ×2; 83690; 84484 ×2; 85025 ×2; 93017; 94799; 99284; A9502; G0378 ×2; J1885; J2270 ×2; J2405 ×2; J2785; U0002

== ENCOUNTER 2021-11-02 11:48 | Inpatient (IN) | payer OTHER ==
[~2021-11-02] VITALS: Ht 165.1 cm; Wt 69.4 kg
[~2021-11-02 11:48] MED LIST changes: +GABAPENTIN600 MG PO; +OXYCODONE HCL15 MG PO
[2021-11-02] MEDS ORDERED: SODIUM CHLORIDE 0.9% 1000ML 1,000 ML IV STA (13:49)
[2021-11-02] MEDS ORDERED: Vancomycin IV 1 GM in SODIUM CHLORIDE 0.9% 250ML 250 ML IV ONE (14:00)
[2021-11-02 14:10] LABS: BASOPHILS # (AUTO) 0.1 (0.0-0.1); BASOPHILS % 0.2 % (0.0-1.0); HEMATOCRIT 34.4 % (34.2-44.1); LYMPHOCYTES # (AUTO) 0.9 (1.0-3.2); LYMPHOCYTES % 2.8 % (18.0-39.1); MEAN CORPUSCULAR VOLUME 78.2 fL (81-99); MONOCYTES % 3.1 % (4.4-11.3); NEUTROPHILS # (AUTO) 28.2 (2.1-6.9); NEUTROPHILS % 93.2 % (38.7-80.0); PLATELET COUNT 656 x10e3/uL (140-360); RED CELL DISTRIBUTION WIDTH 16.4 % (11.7-14.4)
[2021-11-02 14:14] LABS: INR 1.1; PROTHROMBIN TIME 15.2 seconds (11.9-14.5)
[2021-11-02 14:15] LABS: PARTIAL THROMBOPLASTIN TIME 28.8 seconds (23.8-35.5)
[2021-11-02 14:22] LABS: ALBUMIN 2.6 g/dL (3.5-5.0); ALBUMIN/GLOBULIN RATIO 0.4 (0.8-2.0); ALKALINE PHOSPHATASE 119 IU/L (40-150); BLOOD UREA NITROGEN 15 mg/dL (7-26); BUN/CREATININE RATIO 21 (6-25); CALCIUM 9.2 mg/dL (8.4-10.2); CARBON DIOXIDE 25 mmol/L (22-29); CHLORIDE 100 mmol/L (98-107); CREATININE, SERUM 0.72 mg/dL (0.57-1.11); GLUCOSE 149 mg/dL (74-118); SODIUM 136 mmol/L (136-145)
[2021-11-02 14:35] LABS: CLARITY,URINE SL CLOUDY (CLEAR); COLOR,URINE AMBER (YELLOW); KETONES,URINE TRACE (NEGATIVE); LEUKOCYTE ESTERASE ,URINE NEGATIVE (NEGATIVE); NITRITE,URINE NEGATIVE (NEGATIVE); PROTEIN,URINE DIPSTICK 2+ (NEGATIVE)
[2021-11-02 14:36] LABS: URINE UROBILINOGEN 0.2 mg/dL (0.2 - 1)
[2021-11-02 14:39] LABS: ALANINE AMINOTRANSFERASE < 6 IU/L (0-55); AMPHETAMINES SCREEN,URINE NEGATIVE (NEGATIVE); BENZODIAZEPINES SCREEN,URINE NEGATIVE (NEGATIVE); PHENCYCLIDINE SCREEN,URINE NEGATIVE (NEGATIVE)
[2021-11-02 14:45] LABS: AMORPHOUS SEDIMENT,URINE MODERATE (FEW); BACTERIA,URINE MODERATE /HPF; EPITHELIAL CELLS,URINE MANY /LPF; RBC,URINE 0-5 /HPF (0-5); WBC,URINE (MAN) 0-5 /HPF (0-5); YEAST,URINE FEW
[2021-11-02] MEDS: SODIUM CHLORIDE 0.9% 1000ML 1,000 ML IV SCH ×2 (17:15→21:27)
[2021-11-02] MEDS: Morphine 4mg Syringe 4 MG/ML INJ IV PRN (18:15)
[2021-11-02] MEDS: ONDANSETRON HCL INJ 2MG/ML 2ML 2 MG/ML VIAL IV PRN ×3 (18:15→22:24)
[2021-11-02] MEDS ORDERED: HYDROMORPHONE 1MG/1ML INJ IV PRN (19:15)
[2021-11-02] MEDS ORDERED: HYDROMORPHONE 1MG/1ML INJ ONE (19:25)
[2021-11-02] MEDS ORDERED: ONDANSETRON HCL INJ 2MG/ML 2ML 2 MG/ML VIAL ONE (19:26)
[2021-11-02 20:00] VITALS: BP 115/78
[2021-11-02] MEDS: HYDROMORPHONE 1MG/1ML INJ IV PRN ×2 (20:45→22:55)
[2021-11-02 21:00] VITALS: BP 109/55
[2021-11-02 22:00] VITALS: BP 104/55
[2021-11-02 22:26] VITALS: BP 104/55
[2021-11-02] MEDS ORDERED: ACETAMINOPHEN 325 MG TAB ONE (22:30)
[2021-11-02 23:00] VITALS: BP 98/52
[2021-11-03] VITALS (9 sets, daily range): BP systolic 94–112; BP diastolic 48–64
[2021-11-03] MEDS ORDERED: ACETAMINOPHEN 325 MG TAB PO PRN
[2021-11-03] MEDS: HYDROMORPHONE 1MG/1ML INJ IV PRN ×9 (01:10→20:57)
[2021-11-03 04:59] LABS: BASOPHILS # (AUTO) 0.1 (0.0-0.1); BASOPHILS % 0.4 % (0.0-1.0); EOSINOPHILS % 0.1 % (0.0-6.0); HEMATOCRIT 26.6 % (34.2-44.1); HEMOGLOBIN 8.4 g/dL (12.0-16.0); LYMPHOCYTES # (AUTO) 1.7 (1.0-3.2); LYMPHOCYTES % 6.4 % (18.0-39.1); MEAN CORPUSCULAR HEMOGLOBIN 24.9 pg (28-32); MEAN CORPUSCULAR HGB CONC 31.6 g/dL (31-35); MEAN CORPUSCULAR VOLUME 78.7 fL (81-99); MONOCYTES # (AUTO) 1.2 (0.2-0.8); MONOCYTES % 4.6 % (4.4-11.3); NEUTROPHILS # (AUTO) 23.4 (2.1-6.9); NEUTROPHILS % 87.5 % (38.7-80.0); PLATELET COUNT 534 x10e3/uL (140-360); RED BLOOD COUNT 3.38 x10e6/uL (3.6-5.1); RED CELL DISTRIBUTION WIDTH 16.5 % (11.7-14.4)
[2021-11-03 05:17] LABS: ALBUMIN/GLOBULIN RATIO 0.4 (0.8-2.0); ALKALINE PHOSPHATASE 103 IU/L (40-150); ANION GAP 12.7 mmol/L (8-16); BLOOD UREA NITROGEN 15 mg/dL (7-26); BUN/CREATININE RATIO 21 (6-25); CALCIUM 8.1 mg/dL (8.4-10.2); CARBON DIOXIDE 25 mmol/L (22-29); CHLORIDE 106 mmol/L (98-107); CREATININE, SERUM 0.71 mg/dL (0.57-1.11); GLUCOSE 104 mg/dL (74-118); POTASSIUM 3.7 mmol/L (3.5-5.1); SODIUM 140 mmol/L (136-145)
[2021-11-03 05:18] LABS: ALANINE AMINOTRANSFERASE < 6 IU/L (0-55)
[2021-11-03] MEDS: Vancomycin IV 1 GM in SODIUM CHLORIDE 0.9% 250ML 250 ML IV SCH ×2 (05:20→16:10)
[2021-11-03] MEDS: SODIUM CHLORIDE 0.9% 1000ML 1,000 ML IV SCH ×3 (06:00→17:38)
[2021-11-03 06:40] LABS: FERRITIN 631.29 ng/mL (4.63-204.00)
[2021-11-03] MEDS: ONDANSETRON HCL INJ 2MG/ML 2ML 2 MG/ML VIAL IV PRN (07:27)
[2021-11-03] MEDS: GABAPENTIN 300 MG CAP PO SCH ×3 (08:02→20:57)
[2021-11-03] MEDS: NICOTINE 14 MG/EA PATCH TOP SCH (08:02)
[2021-11-03] MEDS: DOCUSATE SODIUM 100 MG CAP PO SCH (08:02)
[2021-11-03] MEDS: SENNOSIDES 8.6 MG TAB PO SCH (08:02)
[2021-11-03] MEDS ORDERED: LIDOCAINE HCL 2% LOCAL INJ 5 ML SDV VIAL INJ ONE (12:25)
[2021-11-03] MEDS ORDERED: PROPOFOL IV EMULSION 10 MG/ML 20 ML VIAL ONE (12:25)
[2021-11-03] MEDS ORDERED: SEVOFLURANE INHAL SOLN 250 ML PEN BTL ONE (12:25)
[2021-11-03] MEDS ORDERED: EPHEDRINE SULFATE INJ 50 MG/ML VIAL ONE (12:25)
[2021-11-03] MEDS ORDERED: DEXAMETHASONE SOD PHOS INJ 4 MG/ML SDV ONE (12:25)
[2021-11-03] MEDS ORDERED: POVIDONE IODINE 0.05% 0.05 % ML PO ONE (12:25)
[2021-11-03] MEDS ORDERED: ONDANSETRON HCL INJ 2MG/ML 2ML 2 MG/ML VIAL ONE (12:25)
[2021-11-03] MEDS ORDERED: MIDAZOLAM HCL 2 MG/2 ML VIAL ONE (12:52)
[2021-11-03] MEDS ORDERED: FENTANYL CITRATE/PF 100MCG/2 ML INJ ONE ×2 (12:52→14:12)
[2021-11-03] MEDS ORDERED: BUPIVACAINE 0.25% 30ML SDV ONE (13:28)
[2021-11-03 17:41] LABS: HEMATOCRIT 25.7 % (34.2-44.1); HEMOGLOBIN 8.1 g/dL (12.0-16.0)
[2021-11-03] MEDS: ZOLPIDEM TARTRATE 10 MG TAB PO SCH (21:00)
[2021-11-04] VITALS (7 sets, daily range): BP systolic 107–113; BP diastolic 57–68
[2021-11-04] MEDS: HYDROMORPHONE 1MG/1ML INJ IV PRN ×10 (00:34→23:46)
[2021-11-04] MEDS: ONDANSETRON HCL INJ 2MG/ML 2ML 2 MG/ML VIAL IV PRN ×3 (00:34→18:40)
[2021-11-04] MEDS: SODIUM CHLORIDE 0.9% 1000ML 1,000 ML IV SCH ×3 (02:20→21:21)
[2021-11-04 05:01] LABS: BASOPHILS % 0.2 % (0.0-1.0); HEMATOCRIT 23.7 % (34.2-44.1); HEMOGLOBIN 7.5 g/dL (12.0-16.0); LYMPHOCYTES # (AUTO) 1.4 (1.0-3.2); LYMPHOCYTES % 7.8 % (18.0-39.1); MEAN CORPUSCULAR HEMOGLOBIN 24.9 pg (28-32); MEAN CORPUSCULAR HGB CONC 31.6 g/dL (31-35); MEAN CORPUSCULAR VOLUME 78.7 fL (81-99); MONOCYTES # (AUTO) 0.5 (0.2-0.8); MONOCYTES % 2.9 % (4.4-11.3); NEUTROPHILS # (AUTO) 16.1 (2.1-6.9); NEUTROPHILS % 88.3 % (38.7-80.0); PLATELET COUNT 510 x10e3/uL (140-360); RED BLOOD COUNT 3.01 x10e6/uL (3.6-5.1); RED CELL DISTRIBUTION WIDTH 16.7 % (11.7-14.4)
[2021-11-04 05:22] LABS: ALBUMIN 1.9 g/dL (3.5-5.0); ALBUMIN/GLOBULIN RATIO 0.4 (0.8-2.0); ANION GAP 10.9 mmol/L (8-16); CALCIUM 7.5 mg/dL (8.4-10.2); CREATININE, SERUM 0.64 mg/dL (0.57-1.11); POTASSIUM 3.9 mmol/L (3.5-5.1)
[2021-11-04] MEDS: Vancomycin IV 1 GM in SODIUM CHLORIDE 0.9% 250ML 250 ML IV SCH ×2 (05:30→16:19)
[2021-11-04] MEDS: SENNOSIDES 8.6 MG TAB PO SCH (09:06)
[2021-11-04] MEDS: GABAPENTIN 300 MG CAP PO SCH ×3 (09:06→21:22)
[2021-11-04] MEDS: NICOTINE 14 MG/EA PATCH TOP SCH (09:06)
[2021-11-04] MEDS: DOCUSATE SODIUM 100 MG CAP PO SCH (09:08)
[2021-11-04] MEDS ORDERED: Vancomycin IV 1.25 GM in SODIUM CHLORIDE 0.9% 250ML 250 ML IV SCH (09:45)
[2021-11-04] MEDS: FERROUS SULFATE 325 MG TAB PO SCH (11:49)
[2021-11-04] MEDS: ENOXAPARIN SOD INJ 40 MG/0.4 ML SYR SC SCH (16:36)
[2021-11-04 16:44] LABS: HEMATOCRIT 25.3 % (34.2-44.1); HEMOGLOBIN 7.8 g/dL (12.0-16.0)
[2021-11-04] MEDS: ZOLPIDEM TARTRATE 10 MG TAB PO SCH (21:00)
[2021-11-05] VITALS (7 sets, daily range): BP systolic 112–129; BP diastolic 62–73
[2021-11-05] MEDS: HYDROMORPHONE 1MG/1ML INJ IV PRN ×5 (02:28→20:02)
[2021-11-05] MEDS: Vancomycin IV 1 GM in SODIUM CHLORIDE 0.9% 250ML 250 ML IV SCH ×2 (05:36→16:47)
[2021-11-05 05:39] LABS: BASOPHILS # (AUTO) 0.1 (0.0-0.1); BASOPHILS % 0.6 % (0.0-1.0); EOSINOPHILS # (AUTO) 0.2 (0.0-0.4); EOSINOPHILS % 1.7 % (0.0-6.0); HEMATOCRIT 23.4 % (34.2-44.1); HEMOGLOBIN 7.2 g/dL (12.0-16.0); LYMPHOCYTES # (AUTO) 3.4 (1.0-3.2); LYMPHOCYTES % 31.6 % (18.0-39.1); MEAN CORPUSCULAR HEMOGLOBIN 24.7 pg (28-32); MEAN CORPUSCULAR HGB CONC 30.8 g/dL (31-35); MEAN CORPUSCULAR VOLUME 80.4 fL (81-99); MONOCYTES # (AUTO) 0.5 (0.2-0.8); MONOCYTES % 4.6 % (4.4-11.3); NEUTROPHILS # (AUTO) 6.5 (2.1-6.9); NEUTROPHILS % 60.6 % (38.7-80.0); PLATELET COUNT 454 x10e3/uL (140-360); RED BLOOD COUNT 2.91 x10e6/uL (3.6-5.1); RED CELL DISTRIBUTION WIDTH 17.2 % (11.7-14.4)
[2021-11-05 06:10] LABS: ALBUMIN 1.7 g/dL (3.5-5.0); ALBUMIN/GLOBULIN RATIO 0.5 (0.8-2.0); ANION GAP 12.4 mmol/L (8-16); CREATININE, SERUM 0.61 mg/dL (0.57-1.11); MAGNESIUM 1.7 MG/DL (1.3-2.1); POTASSIUM 3.4 mmol/L (3.5-5.1)
[2021-11-05] MEDS: DOCUSATE SODIUM 100 MG CAP PO SCH (08:40)
[2021-11-05] MEDS: NICOTINE 14 MG/EA PATCH TOP SCH (08:40)
[2021-11-05] MEDS: ONDANSETRON HCL INJ 2MG/ML 2ML 2 MG/ML VIAL IV PRN ×2 (08:40→16:51)
[2021-11-05] MEDS: FERROUS SULFATE 325 MG TAB PO SCH (08:40)
[2021-11-05] MEDS: SENNOSIDES 8.6 MG TAB PO SCH (08:40)
[2021-11-05] MEDS: GABAPENTIN 300 MG CAP PO SCH ×3 (08:40→20:03)
[2021-11-05] MEDS ORDERED: POTASSIUM CHLORIDE 20 MEQ TAB CR PO NR (12:30)
[2021-11-05] MEDS: Morphine 4mg Syringe 4 MG/ML INJ IV PRN ×2 (13:24→16:51)
[2021-11-05] MEDS: SODIUM CHLORIDE 0.9% 1000ML 1,000 ML IV SCH (16:46)
[2021-11-05] MEDS: ENOXAPARIN SOD INJ 40 MG/0.4 ML SYR SC SCH (17:00)
[2021-11-05] MEDS ORDERED: DIPHENHYDRAMINE HCL 25 MG CAP PO PRN (18:15)
[2021-11-05 18:59] LABS: CALCIUM 7.7 mg/dL (8.4-10.2); CREATININE, SERUM 0.64 mg/dL (0.57-1.11)
[2021-11-05] MEDS: ZOLPIDEM TARTRATE 10 MG TAB PO SCH (21:00)
[2021-11-06] VITALS (8 sets, daily range): BP systolic 112–159; BP diastolic 57–75
[2021-11-06] MEDS: ONDANSETRON HCL INJ 2MG/ML 2ML 2 MG/ML VIAL IV PRN ×5 (00:07→17:40)
[2021-11-06] MEDS: HYDROMORPHONE 1MG/1ML INJ IV PRN ×7 (00:07→21:06)
[2021-11-06 05:04] LABS: BASOPHILS # (AUTO) 0.1 (0.0-0.1); BASOPHILS % 0.8 % (0.0-1.0); EOSINOPHILS # (AUTO) 0.4 (0.0-0.4); EOSINOPHILS % 2.8 % (0.0-6.0); HEMATOCRIT 30.4 % (34.2-44.1); HEMOGLOBIN 9.2 g/dL (12.0-16.0); LYMPHOCYTES # (AUTO) 3.9 (1.0-3.2); LYMPHOCYTES % 30.8 % (18.0-39.1); MEAN CORPUSCULAR HEMOGLOBIN 24.5 pg (28-32); MEAN CORPUSCULAR HGB CONC 30.3 g/dL (31-35); MEAN CORPUSCULAR VOLUME 80.9 fL (81-99); MONOCYTES # (AUTO) 0.6 (0.2-0.8); MONOCYTES % 4.4 % (4.4-11.3); NEUTROPHILS # (AUTO) 7.5 (2.1-6.9); NEUTROPHILS % 58.8 % (38.7-80.0); PLATELET COUNT 649 x10e3/uL (140-360); RED BLOOD COUNT 3.76 x10e6/uL (3.6-5.1); RED CELL DISTRIBUTION WIDTH 17.4 % (11.7-14.4)
[2021-11-06 05:40] LABS: ANION GAP 13.1 mmol/L (8-16); CALCIUM 7.9 mg/dL (8.4-10.2); CREATININE, SERUM 0.68 mg/dL (0.57-1.11); POTASSIUM 4.1 mmol/L (3.5-5.1)
[2021-11-06] MEDS: Vancomycin IV 1 GM in SODIUM CHLORIDE 0.9% 250ML 250 ML IV SCH ×2 (06:13→17:10)
[2021-11-06] MEDS: DOCUSATE SODIUM 100 MG CAP PO SCH (08:21)
[2021-11-06] MEDS: GABAPENTIN 300 MG CAP PO SCH ×3 (08:22→21:06)
[2021-11-06] MEDS: NICOTINE 14 MG/EA PATCH TOP SCH (08:22)
[2021-11-06] MEDS: SENNOSIDES 8.6 MG TAB PO SCH (08:22)
[2021-11-06] MEDS: FERROUS SULFATE 325 MG TAB PO SCH (08:22)
[2021-11-06] MEDS: SODIUM CHLORIDE 0.9% 1000ML 1,000 ML IV SCH ×3 (08:25→21:22)
[2021-11-06] MEDS: ENOXAPARIN SOD INJ 40 MG/0.4 ML SYR SC SCH (17:10)
[2021-11-06] MEDS: ZOLPIDEM TARTRATE 10 MG TAB PO SCH (21:00)
[2021-11-07] VITALS (7 sets, daily range): BP systolic 130–147; BP diastolic 62–75
[2021-11-07] MEDS: HYDROMORPHONE 1MG/1ML INJ IV PRN ×8 (00:06→21:46)
[2021-11-07] MEDS: ONDANSETRON HCL INJ 2MG/ML 2ML 2 MG/ML VIAL IV PRN ×3 (00:06→10:47)
[2021-11-07] MEDS: Vancomycin IV 1 GM in SODIUM CHLORIDE 0.9% 250ML 250 ML IV SCH ×2 (04:18→17:08)
[2021-11-07 05:31] LABS: BASOPHILS # (AUTO) 0.1 (0.0-0.1); BASOPHILS % 0.7 % (0.0-1.0); EOSINOPHILS # (AUTO) 0.5 (0.0-0.4); EOSINOPHILS % 3.5 % (0.0-6.0); HEMOGLOBIN 9.2 g/dL (12.0-16.0); LYMPHOCYTES # (AUTO) 3.1 (1.0-3.2); MEAN CORPUSCULAR HEMOGLOBIN 24.8 pg (28-32); MEAN CORPUSCULAR HGB CONC 31.7 g/dL (31-35); MEAN CORPUSCULAR VOLUME 78.2 fL (81-99); MONOCYTES # (AUTO) 0.6 (0.2-0.8); MONOCYTES % 4.9 % (4.4-11.3); NEUTROPHILS # (AUTO) 8.2 (2.1-6.9); NEUTROPHILS % 63.3 % (38.7-80.0); PLATELET COUNT 706 x10e3/uL (140-360); RED BLOOD COUNT 3.71 x10e6/uL (3.6-5.1); RED CELL DISTRIBUTION WIDTH 17.1 % (11.7-14.4)
[2021-11-07] MEDS: NICOTINE 14 MG/EA PATCH TOP SCH (08:58)
[2021-11-07] MEDS: FERROUS SULFATE 325 MG TAB PO SCH (08:58)
[2021-11-07] MEDS: GABAPENTIN 300 MG CAP PO SCH ×3 (08:58→21:52)
[2021-11-07] MEDS: DOCUSATE SODIUM 100 MG CAP PO SCH (09:00)
[2021-11-07] MEDS: SENNOSIDES 8.6 MG TAB PO SCH (09:00)
[2021-11-07] MEDS: SODIUM CHLORIDE 0.9% 1000ML 1,000 ML IV SCH (14:08)
[2021-11-07] MEDS: ENOXAPARIN SOD INJ 40 MG/0.4 ML SYR SC SCH (17:08)
[2021-11-07] MEDS: ZOLPIDEM TARTRATE 10 MG TAB PO SCH (21:00)
[2021-11-08] VITALS: BP 130/63
[2021-11-08] MEDS: HYDROMORPHONE 1MG/1ML INJ IV PRN ×3 (00:43→06:58)
[2021-11-08] MEDS: SODIUM CHLORIDE 0.9% 1000ML 1,000 ML IV SCH (01:44)
[2021-11-08] MEDS: ONDANSETRON HCL INJ 2MG/ML 2ML 2 MG/ML VIAL IV PRN (04:08)
[2021-11-08 04:45] VITALS: BP 131/65
[2021-11-08 06:00] LABS: BASOPHILS # (AUTO) 0.1 (0.0-0.1); BASOPHILS % 0.5 % (0.0-1.0); EOSINOPHILS # (AUTO) 0.6 (0.0-0.4); EOSINOPHILS % 4.3 % (0.0-6.0); HEMATOCRIT 31.2 % (34.2-44.1); HEMOGLOBIN 9.5 g/dL (12.0-16.0); LYMPHOCYTES # (AUTO) 3.3 (1.0-3.2); LYMPHOCYTES % 22.8 % (18.0-39.1); MEAN CORPUSCULAR HEMOGLOBIN 24.5 pg (28-32); MEAN CORPUSCULAR HGB CONC 30.4 g/dL (31-35); MEAN CORPUSCULAR VOLUME 80.6 fL (81-99); MONOCYTES # (AUTO) 0.8 (0.2-0.8); MONOCYTES % 5.4 % (4.4-11.3); PLATELET COUNT 682 x10e3/uL (140-360); RED BLOOD COUNT 3.87 x10e6/uL (3.6-5.1); RED CELL DISTRIBUTION WIDTH 18.4 % (11.7-14.4)
[2021-11-08 06:39] LABS: ALBUMIN 2.2 g/dL (3.5-5.0); ALBUMIN/GLOBULIN RATIO 0.5 (0.8-2.0); ANION GAP 11.8 mmol/L (8-16); CALCIUM 8.1 mg/dL (8.4-10.2); CREATININE, SERUM 0.68 mg/dL (0.57-1.11); MAGNESIUM 1.9 MG/DL (1.3-2.1); POTASSIUM 3.8 mmol/L (3.5-5.1)
[2021-11-08] MEDS: Vancomycin IV 1 GM in SODIUM CHLORIDE 0.9% 250ML 250 ML IV SCH (06:54)
[2021-11-08 08:00] VITALS: BP 124/74
[2021-11-08 08:01] VITALS: BP 124/74
[2021-11-08] MEDS: FERROUS SULFATE 325 MG TAB PO SCH (08:38)
[2021-11-08] MEDS: NICOTINE 14 MG/EA PATCH TOP SCH (08:38)
[2021-11-08] MEDS: GABAPENTIN 300 MG CAP PO SCH (08:38)
[2021-11-08] MEDS: SENNOSIDES 8.6 MG TAB PO SCH ×2 (08:38→08:52)
[2021-11-08] MEDS: DOCUSATE SODIUM 100 MG CAP PO SCH ×2 (08:38→08:52)
[2021-11-08] MEDS ORDERED: OXYCODONE HCL IR 15 MG TAB PO PRN (10:00)
[2021-11-08] MEDS ORDERED: OXYCODONE HCL IR 5 MG TAB PO PRN (10:30)
[2021-11-08 11:53] VITALS: BP 139/77
[2021-11-08] MEDS ORDERED: ZYVOX600 MG PO (12:33)
[2021-11-08] MEDS ORDERED: ENOXAPARIN SOD INJ 40 MG/0.4 ML SYR SC SCH (17:00)
== END 2021-11-08 14:28 | disposition home or self-care (01) | DRG 872 ==
LOC: ER 12:00 → ERHOLD 17:23 → ICU 20:06 → MED/SURG 11-04 14:03
PROVIDERS: ADMIT Internal Medicine; ATTEND Internal Medicine
PROC: 0J9M00Z Drainage of Left Upper Leg Subcutaneous Tissue and Fascia with Drainage Device, Open Approach (ICD-10-PCS; principal; 2021-11-03 12:58)
DX: A41.9 Sepsis, unspecified organism (principal); L03.116 Cellulitis of left lower limb; L02.91 Cutaneous abscess, unspecified; K21.9 Gastro-esophageal reflux disease without esophagitis; M19.90 Unspecified osteoarthritis, unspecified site; D64.9 Anemia, unspecified; Z91.041 Radiographic dye allergy status; Z79.899 Other long term (current) drug therapy; Z74.09 Other reduced mobility; K20.90 Esophagitis, unspecified without bleeding; N20.0 Calculus of kidney; Z99.89 Dependence on other enabling machines and devices; Z20.822 Contact with and (suspected) exposure to COVID-19; Z85.9 Personal history of malignant neoplasm, unspecified; R53.81 Other malaise; M19.91 Primary osteoarthritis, unspecified site; F17.210 Nicotine dependence, cigarettes, uncomplicated
CPT/HCPCS: 36415; 80048; 80053; 80202; 80307; 81001; 82607; 82728; 82746; 83036; 83540; 83605; 83735; 84466; 85014; 85018; 85025; 85610; 85730; 87040; 87071; 87075; 87205; 94799; 96360; 97139; 99251; 99284; C1713; J1100; J1170; J1650; J2001; J2250; J2270; J2405; J2543; J3010; J3370; J7030; J7050; U0002

== ENCOUNTER 2022-02-14 11:06 | Emergency (ER) | payer OTHER ==
[~2022-02-14] VITALS: Ht 165.1 cm; Wt 69.4 kg
[~2022-02-14 11:06] MED LIST changes: +ZYVOX600 MG PO
[2022-02-14 12:56] LABS: BASOPHILS # (AUTO) 0.1 (0.0-0.1); BASOPHILS % 0.4 % (0.0-1.0); EOSINOPHILS # (AUTO) 0.2 (0.0-0.4); EOSINOPHILS % 1.5 % (0.0-6.0); HEMATOCRIT 35.1 % (34.2-44.1); HEMOGLOBIN 10.7 g/dL (12.0-16.0); LYMPHOCYTES # (AUTO) 1.7 (1.0-3.2); LYMPHOCYTES % 15.3 % (18.0-39.1); MEAN CORPUSCULAR HEMOGLOBIN 23.9 pg (28-32); MEAN CORPUSCULAR HGB CONC 30.5 g/dL (31-35); MEAN CORPUSCULAR VOLUME 78.3 fL (81-99); MONOCYTES # (AUTO) 0.4 (0.2-0.8); MONOCYTES % 3.2 % (4.4-11.3); NEUTROPHILS % 79.2 % (38.7-80.0); PLATELET COUNT 557 x10e3/uL (140-360); RED BLOOD COUNT 4.48 x10e6/uL (3.6-5.1)
[2022-02-14 13:05] LABS: COLOR,URINE YELLOW (YELLOW)
[2022-02-14 13:06] LABS: CLARITY,URINE CLEAR (CLEAR); KETONES,URINE 2+ (NEGATIVE); LEUKOCYTE ESTERASE ,URINE NEGATIVE (NEGATIVE); NITRITE,URINE NEGATIVE (NEGATIVE); PROTEIN,URINE DIPSTICK NEGATIVE (NEGATIVE); URINE UROBILINOGEN 0.2 mg/dL (0.2 - 1)
[2022-02-14] MEDS: ONDANSETRON HCL INJ 2MG/ML 2ML 2 MG/ML VIAL IV PRN ×2 (13:07→14:08)
[2022-02-14] MEDS ORDERED: SODIUM CHLORIDE 0.9% 1000ML 1,000 ML ONE (13:10)
[2022-02-14] MEDS ORDERED: SODIUM CHLORIDE 0.9% 1000ML 1,000 ML IV ONE (13:15)
[2022-02-14 13:19] LABS: WBC,URINE (MAN) 0-5 /HPF (0-5)
[2022-02-14 13:19] LABS: ALBUMIN 3.1 g/dL (3.5-5.0); ALBUMIN/GLOBULIN RATIO 0.6 (0.8-2.0); ALKALINE PHOSPHATASE 85 IU/L (40-150); ANION GAP 19.1 mmol/L (8-16); BLOOD UREA NITROGEN 10 mg/dL (7-26); BUN/CREATININE RATIO 15 (6-25); CALCIUM 9.4 mg/dL (8.4-10.2); CARBON DIOXIDE 25 mmol/L (22-29); CHLORIDE 101 mmol/L (98-107); CREATININE, SERUM 0.66 mg/dL (0.57-1.11); GLUCOSE 99 mg/dL (74-118); POTASSIUM 4.1 mmol/L (3.5-5.1); SODIUM 141 mmol/L (136-145)
[2022-02-14 13:20] LABS: BACTERIA,URINE FEW /HPF; EPITHELIAL CELLS,URINE MODERATE /LPF; RBC,URINE 0-5 /HPF (0-5)
[2022-02-14 13:23] LABS: ALANINE AMINOTRANSFERASE < 6 IU/L (0-55)
[2022-02-14] MEDS ORDERED: FENTANYL CITRATE/PF 100MCG/2 ML INJ IV ONE (14:00)
[2022-02-14] MEDS ORDERED: ONDANSETRON ODT4 MG PO (14:02)
[2022-02-14 14:49] VITALS: BP 134/80
== END 2022-02-14 14:25 | disposition home or self-care (01) ==
LOC: ER 11:32
DX: R10.33 Periumbilical pain (principal); N28.89 Other specified disorders of kidney and ureter; R11.0 Nausea; D64.9 Anemia, unspecified; K21.9 Gastro-esophageal reflux disease without esophagitis; Z85.89 Personal history of malignant neoplasm of other organs and systems
CPT/HCPCS: 36415; 74176; 80053; 81001; 83690; 85025; 99284; J2405; J3010; J7030

== ENCOUNTER 2022-03-11 04:52 | Inpatient (IN) | payer OTHER ==
[2022-03-11] VITALS (7 sets, daily range): BP systolic 113–143; BP diastolic 56–92
[~2022-03-11] VITALS: Ht 165.1 cm; Wt 64.4 kg
[~2022-03-11 04:52] MED LIST changes: +ONDANSETRON ODT4 MG PO
[2022-03-11] MEDS: HYDROMORPHONE 1MG/1ML INJ IV PRN ×4 (09:37→22:22)
[2022-03-11] MEDS: SODIUM CHLORIDE 0.9% 1000ML 1,000 ML IV SCH ×2 (09:38→17:17)
[2022-03-11 10:41] LABS: BASOPHILS # (AUTO) 0.1 (0.0-0.1); BASOPHILS % 0.4 % (0.0-1.0); EOSINOPHILS # (AUTO) 0.4 (0.0-0.4); EOSINOPHILS % 2.8 % (0.0-6.0); HEMATOCRIT 30.3 % (34.2-44.1); HEMOGLOBIN 9.4 g/dL (12.0-16.0); LYMPHOCYTES # (AUTO) 2.3 (1.0-3.2); LYMPHOCYTES % 15.3 % (18.0-39.1); MEAN CORPUSCULAR HEMOGLOBIN 23.6 pg (28-32); MEAN CORPUSCULAR VOLUME 76.1 fL (81-99); MONOCYTES # (AUTO) 0.5 (0.2-0.8); MONOCYTES % 3.6 % (4.4-11.3); NEUTROPHILS # (AUTO) 11.5 (2.1-6.9); NEUTROPHILS % 76.8 % (38.7-80.0); PLATELET COUNT 561 x10e3/uL (140-360); RED BLOOD COUNT 3.98 x10e6/uL (3.6-5.1); RED CELL DISTRIBUTION WIDTH 17.3 % (11.7-14.4)
[2022-03-11 11:14] LABS: ALBUMIN 2.7 g/dL (3.5-5.0); ALBUMIN/GLOBULIN RATIO 0.6 (0.8-2.0); ALKALINE PHOSPHATASE 72 IU/L (40-150); ANION GAP 13.7 mmol/L (8-16); BLOOD UREA NITROGEN 12 mg/dL (7-26); BUN/CREATININE RATIO 19 (6-25); CALCIUM 8.3 mg/dL (8.4-10.2); CARBON DIOXIDE 23 mmol/L (22-29); CHLORIDE 105 mmol/L (98-107); CREATININE, SERUM 0.62 mg/dL (0.57-1.11); GLUCOSE 93 mg/dL (74-118); POTASSIUM 3.7 mmol/L (3.5-5.1); SODIUM 138 mmol/L (136-145)
[2022-03-11 11:18] LABS: ALANINE AMINOTRANSFERASE < 6 IU/L (0-55)
[2022-03-11 11:25] LABS: AMYLASE 26 U/L (25-125); LIPASE 10 U/L (8-78)
[2022-03-12] VITALS: BP 111/63
[2022-03-12] MEDS: HYDROMORPHONE 1MG/1ML INJ IV PRN ×7 (02:04→21:22)
[2022-03-12 04:00] VITALS: BP 111/53
[2022-03-12] MEDS: SODIUM CHLORIDE 0.9% 1000ML 1,000 ML IV SCH ×2 (05:33→11:20)
[2022-03-12 07:33] LABS: BASOPHILS # (AUTO) 0.1 (0.0-0.1); BASOPHILS % 0.4 % (0.0-1.0); EOSINOPHILS # (AUTO) 0.7 (0.0-0.4); EOSINOPHILS % 5.2 % (0.0-6.0); HEMATOCRIT 27.7 % (34.2-44.1); HEMOGLOBIN 8.3 g/dL (12.0-16.0); LYMPHOCYTES # (AUTO) 3.1 (1.0-3.2); LYMPHOCYTES % 25.2 % (18.0-39.1); MEAN CORPUSCULAR HEMOGLOBIN 23.5 pg (28-32); MEAN CORPUSCULAR VOLUME 78.5 fL (81-99); MONOCYTES # (AUTO) 0.6 (0.2-0.8); MONOCYTES % 4.4 % (4.4-11.3); NEUTROPHILS % 63.9 % (38.7-80.0); PLATELET COUNT 483 x10e3/uL (140-360); RED BLOOD COUNT 3.53 x10e6/uL (3.6-5.1); RED CELL DISTRIBUTION WIDTH 17.2 % (11.7-14.4)
[2022-03-12 07:50] LABS: ALBUMIN 2.2 g/dL (3.5-5.0); ALBUMIN/GLOBULIN RATIO 0.6 (0.8-2.0); ALKALINE PHOSPHATASE 60 IU/L (40-150); ANION GAP 9.3 mmol/L (8-16); BLOOD UREA NITROGEN 8 mg/dL (7-26); BUN/CREATININE RATIO 15 (6-25); CALCIUM 7.6 mg/dL (8.4-10.2); CARBON DIOXIDE 23 mmol/L (22-29); CHLORIDE 110 mmol/L (98-107); CREATININE, SERUM 0.53 mg/dL (0.57-1.11); GLUCOSE 89 mg/dL (74-118); POTASSIUM 3.3 mmol/L (3.5-5.1); SODIUM 139 mmol/L (136-145)
[2022-03-12 07:51] LABS: ALANINE AMINOTRANSFERASE < 6 IU/L (0-55)
[2022-03-12 08:00] VITALS: BP 111/53
[2022-03-12 08:36] VITALS: BP 126/73
[2022-03-12] MEDS ORDERED: POTASSIUM CHLORIDE 10MEQ EA PO ONE ×2 (11:00→12:45)
[2022-03-12] MEDS: ONDANSETRON HCL INJ 2MG/ML 2ML 2 MG/ML VIAL IV PRN ×3 (11:44→22:10)
[2022-03-12] MEDS: NICOTINE 14 MG/EA PATCH TOP SCH (11:44)
[2022-03-12 15:31] VITALS: BP 139/83
[2022-03-12 21:00] VITALS: BP 122/71
[2022-03-13] MEDS: SODIUM CHLORIDE 0.9% 1000ML 1,000 ML IV SCH ×3 (00:38→20:18)
[2022-03-13] MEDS: HYDROMORPHONE 1MG/1ML INJ IV PRN ×8 (00:38→22:34)
[2022-03-13 04:00] VITALS: BP 122/71
[2022-03-13] MEDS: ONDANSETRON HCL INJ 2MG/ML 2ML 2 MG/ML VIAL IV PRN ×2 (04:53→11:54)
[2022-03-13] MEDS: NICOTINE 14 MG/EA PATCH TOP SCH (08:20)
[2022-03-13 08:30] VITALS: BP 140/74
[2022-03-13] MEDS ORDERED: METRONIDAZOLE 500MG/NS 100ML 100 ML IV SCH (09:00)
[2022-03-13 11:57] LABS: BASOPHILS # (AUTO) 0.1 (0.0-0.1); BASOPHILS % 0.5 % (0.0-1.0); EOSINOPHILS # (AUTO) 0.3 (0.0-0.4); EOSINOPHILS % 3.3 % (0.0-6.0); HEMATOCRIT 30.8 % (34.2-44.1); HEMOGLOBIN 9.3 g/dL (12.0-16.0); LYMPHOCYTES # (AUTO) 2.2 (1.0-3.2); LYMPHOCYTES % 23.1 % (18.0-39.1); MEAN CORPUSCULAR HEMOGLOBIN 23.7 pg (28-32); MEAN CORPUSCULAR HGB CONC 30.2 g/dL (31-35); MEAN CORPUSCULAR VOLUME 78.6 fL (81-99); MONOCYTES # (AUTO) 0.3 (0.2-0.8); MONOCYTES % 3.4 % (4.4-11.3); NEUTROPHILS # (AUTO) 6.7 (2.1-6.9); NEUTROPHILS % 68.9 % (38.7-80.0); PLATELET COUNT 535 x10e3/uL (140-360); RED BLOOD COUNT 3.92 x10e6/uL (3.6-5.1); RED CELL DISTRIBUTION WIDTH 17.4 % (11.7-14.4)
[2022-03-13 12:13] LABS: ANION GAP 10.9 mmol/L (8-16); CALCIUM 8.3 mg/dL (8.4-10.2); CREATININE, SERUM 0.58 mg/dL (0.57-1.11); POTASSIUM 3.9 mmol/L (3.5-5.1)
[2022-03-13] MEDS ORDERED: PROPOFOL IV EMULSION 10 MG/ML 20 ML VIAL ONE (12:15)
[2022-03-13] MEDS ORDERED: POVIDONE IODINE 0.05% 0.05 % ML PO ONE (12:15)
[2022-03-13] MEDS ORDERED: METOCLOPRAMIDE HCL 10 MG/2ML VIAL ONE (12:15)
[2022-03-13] MEDS ORDERED: ROCURONIUM BROMIDE 10 MG/ML 5ML VIAL IV ONE (12:15)
[2022-03-13] MEDS ORDERED: ACETAMINOPHEN 1000 MG/100 ML IV ONE (12:15)
[2022-03-13] MEDS ORDERED: GLYCOPYRROLATE INJ 0.2 MG/ML VIAL ONE (12:15)
[2022-03-13] MEDS ORDERED: NEOSTIGMINE 1 MG/ML 10ML VIAL ONE (12:15)
[2022-03-13] MEDS ORDERED: SEVOFLURANE INHAL SOLN 250 ML PEN BTL ONE (12:15)
[2022-03-13] MEDS ORDERED: LIDOCAINE HCL 2% LOCAL INJ 5 ML SDV VIAL INJ ONE (12:15)
[2022-03-13] MEDS ORDERED: DEXAMETHASONE SOD PHOS INJ 4 MG/ML SDV ONE (12:15)
[2022-03-13] MEDS ORDERED: ONDANSETRON HCL INJ 2MG/ML 2ML 2 MG/ML VIAL ONE ×2 (12:15→14:49)
[2022-03-13] MEDS ORDERED: FENTANYL CITRATE/PF 100MCG/2 ML INJ ONE ×2 (12:27→14:49)
[2022-03-13] MEDS ORDERED: MIDAZOLAM HCL 2 MG/2 ML VIAL ONE (12:27)
[2022-03-13] MEDS ORDERED: KETAMINE HCL INJ 50 MG/ML 10 ML VIAL ONE (12:27)
[2022-03-13 12:37] VITALS: BP 138/79
[2022-03-13] MEDS ORDERED: HYDROMORPHONE 1MG/1ML INJ ONE ×2 (12:45→14:32)
[2022-03-13] MEDS ORDERED: SCOPOLAMINE 1 MG PATCH ONE (12:47)
[2022-03-13] MEDS ORDERED: BUPIVACAINE 0.25% 30ML SDV ONE (12:51)
[2022-03-13 18:10] VITALS: BP 138/79
[2022-03-13 18:28] VITALS: BP 146/93
[2022-03-13 20:00] VITALS: BP 128/80
[2022-03-14] MEDS: HYDROMORPHONE 1MG/1ML INJ IV PRN ×6 (02:08→18:25)
[2022-03-14] MEDS: ONDANSETRON HCL INJ 2MG/ML 2ML 2 MG/ML VIAL IV PRN ×3 (02:10→15:06)
[2022-03-14] MEDS: SODIUM CHLORIDE 0.9% 1000ML 1,000 ML IV SCH ×2 (06:15→15:58)
[2022-03-14 06:30] LABS: BASOPHILS # (AUTO) 0.1 (0.0-0.1); BASOPHILS % 0.4 % (0.0-1.0); EOSINOPHILS # (AUTO) 0.2 (0.0-0.4); EOSINOPHILS % 1.6 % (0.0-6.0); HEMOGLOBIN 8.9 g/dL (12.0-16.0); LYMPHOCYTES % 20.1 % (18.0-39.1); MEAN CORPUSCULAR HEMOGLOBIN 23.6 pg (28-32); MEAN CORPUSCULAR HGB CONC 29.7 g/dL (31-35); MEAN CORPUSCULAR VOLUME 79.6 fL (81-99); MONOCYTES # (AUTO) 0.5 (0.2-0.8); MONOCYTES % 3.3 % (4.4-11.3); NEUTROPHILS # (AUTO) 10.9 (2.1-6.9); NEUTROPHILS % 74.1 % (38.7-80.0); PLATELET COUNT 525 x10e3/uL (140-360); RED BLOOD COUNT 3.77 x10e6/uL (3.6-5.1); RED CELL DISTRIBUTION WIDTH 17.4 % (11.7-14.4)
[2022-03-14 07:29] VITALS: BP 128/80
[2022-03-14 07:30] VITALS: BP 128/80
[2022-03-14 07:43] LABS: ALBUMIN 2.5 g/dL (3.5-5.0); ALBUMIN/GLOBULIN RATIO 0.6 (0.8-2.0); ALKALINE PHOSPHATASE 68 IU/L (40-150); ANION GAP 12.4 mmol/L (8-16); BLOOD UREA NITROGEN 6 mg/dL (7-26); BUN/CREATININE RATIO 10 (6-25); CALCIUM 8.1 mg/dL (8.4-10.2); CARBON DIOXIDE 21 mmol/L (22-29); CHLORIDE 107 mmol/L (98-107); CREATININE, SERUM 0.58 mg/dL (0.57-1.11); GLUCOSE 86 mg/dL (74-118); MAGNESIUM 1.9 MG/DL (1.3-2.1); POTASSIUM 3.4 mmol/L (3.5-5.1); SODIUM 137 mmol/L (136-145)
[2022-03-14 07:45] LABS: ALANINE AMINOTRANSFERASE < 6 IU/L (0-55)
[2022-03-14 08:41] VITALS: BP 142/74
[2022-03-14] MEDS: NICOTINE 14 MG/EA PATCH TOP SCH (08:41)
[2022-03-14 17:38] VITALS: BP 139/77
== END 2022-03-14 19:02 | disposition home or self-care (01) | DRG 418 ==
LOC: MERGE 05:18 → MED/SURG2 05:18
PROVIDERS: ADMIT Internal Medicine; ATTEND Internal Medicine
PROC: 02HV33Z Insertion of Infusion Device into Superior Vena Cava, Percutaneous Approach (ICD-10-PCS; 2022-03-11)
PROC: 0FT44ZZ Resection of Gallbladder, Percutaneous Endoscopic Approach (ICD-10-PCS; principal; 2022-03-13 12:54)
DX: K80.12 Calculus of gallbladder with acute and chronic cholecystitis without obstruction (principal); E44.0 Moderate protein-calorie malnutrition; N28.89 Other specified disorders of kidney and ureter; E87.6 Hypokalemia; G89.4 Chronic pain syndrome; G62.9 Polyneuropathy, unspecified; Z68.23 Body mass index [BMI] 23.0-23.9, adult; Z88.5 Allergy status to narcotic agent; Z91.041 Radiographic dye allergy status; Z82.49 Family history of ischemic heart disease and other diseases of the circulatory system; Z72.0 Tobacco use; Z85.89 Personal history of malignant neoplasm of other organs and systems; Z88.8 Allergy status to other drugs, medicaments and biological substances; Z91.013 Allergy to seafood; Z20.822 Contact with and (suspected) exposure to COVID-19
CPT/HCPCS: 36415; 36584; 71045; 78227; 80048; 80053; 82150; 83690; 83735; 85025; 88304; 96361; A9537; C1766; J0696; J1100; J1170; J2001; J2250; J2405; J2710; J2765; J3010; J7030

== ENCOUNTER 2022-07-07 20:06 | Emergency (ER) | payer OTHER ==
[~2022-07-07] VITALS: Ht 165.1 cm; Wt 69.4 kg
== END 2022-07-07 22:44 | disposition home or self-care (01) ==
LOC: FSED 20:12
DX: S16.1XXA Strain of muscle, fascia and tendon at neck level, initial encounter (principal); R51.9 Headache, unspecified; V43.53XA Car driver injured in collision with pick-up truck in traffic accident, initial encounter; Y92.488 Other paved roadways as the place of occurrence of the external cause; M19.09 Primary osteoarthritis, other specified site; C64.9 Malignant neoplasm of unspecified kidney, except renal pelvis; D64.9 Anemia, unspecified; K21.9 Gastro-esophageal reflux disease without esophagitis; G89.4 Chronic pain syndrome
CPT/HCPCS: 70450; 72125; 99283